=== PATIENT | male | born 1970 | race African-American/Black ===

== ENCOUNTER 2017-05-10 19:24 | Emergency (ER) | payer OTHER ==
--- NOTE | 2017-05-10 19:41 | EDPHY ---
H & P Stated Complaint: fever, sore throat, ache HPI/ROS: HPI CHIEF COMPLAINT: Sore throat, fever HISTORY OF PRESENT ILLNESS: This patient is a 47-year-old male otherwise healthy no significant medical history presents emergency room stating that he had chills earlier today and sore throat. He states for most today he had intermittent chills no rigors. 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 He decided come the emergency room due to the high temperature. Upon arrival to the emergency room he is afebrile. We checked his temperature multiple times. Oral temp here was negative. Recheck this 3 times to make sure. He states his temperature was 105.9degrees 20 minutes prior to arrival. He did take NyQuil this evening. However took his temperature and 20 minutes prior to arriving states was 105.9. Of note here in the emergency room he appears well nontoxic he has no complaints. He states he had chills earlier and sore throat. He denies any cough, shortness of breath, chest pain, vomiting, rigors. Denies generalized weakness. He does not take any medications. He does state that his sore throat is now improved. Past Medical History: No medical history Past Surgical History: No surgical history Social History: Denies daily use drugs alcohol tobacco products. Family History: Noncontributory ROS REVIEW OF SYSTEMS: A comprehensive 10 point review of systems is otherwise negative aside from elements mentioned in the history of present illness. Exam Constitutional appears well nontoxic triage nursing summary reviewed, vital signs reviewed, awake/alert. Vital signs noted at triage. Afebrile. Eyes normal conjunctivae and sclera, EOMI, PERRLA. HENT TMs are erythematous bilaterally, posterior pharynx is erythematous but no significant exudate or swelling, uvula midline, no hot potato voice, no neck pain, no change in voice, no drooling, no trouble swallowing,, moist mucus membranes, no epistaxis, neck supple/ no meningismus, no raccoon eyes. Respiratory clear to auscultation bilaterally, normal breath sounds, no respiratory distress, no wheezing. Cardiovascular rate normal, regular rhythm, no murmur, no edema, distal pulses normal. Gastrointestinal soft, non-tender, no rebound, no guarding, normal bowel sounds, no distension, no pulsatile mass. Genitourinary no CVA tenderness. Musculoskeletal no midline vertebral tenderness, full range of motion, no calf swelling, no tenderness of extremities, no meningismus, good pulses, neurovascularly intact. Skin pink, warm, & dry, no rash, skin atraumatic. Neurologic awake, alert and oriented x 3, AAOx3, moves all 4 extremities equally, motor intact, sensory intact, CN II-XII intact, normal cerebellar, normal vision, normal speech. Psychiatric normal mood/affect. Heme/Lymph/Immune no lymphadenopathy. Differential Diagnosis: Includes but is not limited to in a particular order viral syndrome, respiratory tract infection, strep pharyngitis, influenza, acute febrile illness, inaccuracy of a thermometer Medical Decision Making: Plan for this patient rapid strep, check influenza, basic blood work. If elevated white count may obtain blood cultures and lactic acid. Re-evaluation: Clinically on exam this patient appears very well nontoxic in no acute distress. Temperature 105.9degrees at home 20 minutes prior to arrival however afebrile here. 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 His only complaint is sore throat. Had chills earlier. Checked his temperature here multiple times. Will do a blood draw to look at basic blood work, sent rapid strep and check influenza. This patient certainly appears well not ill does not appear septic or bacteremic. He is afebrile here. 2048: On re-evaluation this patient remains afebrile nontoxic-appearing he has no complaints. Vital signs are stable. I did pull blood cultures due to the elevated white blood cell count. He does have a bulging erythematous TMs bilaterally and posterior pharynx is erythematous is possible this is a viral syndrome. Unclear why he had a fever of 105.9 at home and then arrived to the emergency room afebrile we did check this multiple times. Lactic acid is less than 2. Blood cultures pending. He understands keep his fold on as our allowed to go home as he appears very well here is afebrile. However he does understand return precautions. Specifically if he spiking temperatures has chills or rigors is vomiting or does not feel well he should return to the emergency room. Also additionally will start azithromycin here in the emergency room and Z-Fausto for home. This will cover his ears and throat. Return to the ER if worse. He understands. Source: Patient - Personal History Current Tetanus Diphtheria and Acellular Pertussis (TDAP): Yes - Medical/Surgical History Hx Asthma: No Hx Chronic Respiratory Disease: No Hx Diabetes: No Hx Cardiac Disease: No Hx Renal Disease: No Hx Cirrhosis: No Hx Alcoholism: No Hx HIV/AIDS: No Hx Splenectomy or Spleen Trauma: No Other PMH: denies - Social History Smoking Status: Never smoked Constitutional: Initial Vital Signs Temperature (C) 37.5 C 05/10/17 19:32 Heart Rate 109 H 05/10/17 19:32 Respiratory Rate 20 05/10/17 19:32 Blood Pressure 125/80 H 05/10/17 19:32 O2 Sat (%) 94 05/10/17 19:32 Allergies/Adverse Reactions: No Known Allergies Allergy (Unverified 05/10/17 19:32) Home Medications: Medication Instructions Recorded AZITHROMYCIN [Z-PACK] 250 mg PO DAILY #6 tab 05/10/17 Medical Decision Making - Data Points Laboratory Results: Laboratory Results 05/10/17 19:58 05/10/17 19:58 05/10/17 05/10/17 05/10/17 Unknown 20:30 20:30 WBC RBC Hgb Hct MCV MCH MCHC RDW Plt Count MPV Neut % (Auto) Lymph % (Auto) [place] % (Auto) Eos % (Auto) Baso % (Auto) Nucleat RBC Rel Count Absolute Neuts (auto) Absolute Lymphs (auto) Absolute Monos (auto) Absolute Eos (auto) Absolute Basos (auto) Absolute Nucleated RBC Immature Gran % Immature Gran # VBG Lactic Acid 1.2 mmol/L mmol/L (0.7-2.1) Sodium Potassium Chloride Carbon Dioxide Anion Gap BUN Creatinine Estimated GFR Glucose Calcium Urine Color YELLOW Urine Appearance CLEAR Urine pH 6.0 (5.0-7.5) Ur Specific [place] <= 1.005 (1.002-1.030) Urine Protein NEGATIVE (NEGATIVE) Urine Ketones NEGATIVE (NEGATIVE) Urine Blood NEGATIVE (NEGATIVE) Urine Nitrate NEGATIVE (NEGATIVE) Urine Bilirubin NEGATIVE (NEGATIVE) Urine Urobilinogen 0.2 EU EU (0.2-1.0) Ur Leukocyte Esterase NEGATIVE (NEGATIVE) Urine Glucose NEGATIVE (NEGATIVE) Influenza A,B Rapid Group A Strep Screen Group A Strep DNA Pending 05/10/17 05/10/17 05/10/17 19:58 19:58 19:45 WBC 14.48 10^3/uL H 10^3/uL (3.80-9.50) RBC 4.81 10^6/uL 10^6/uL (4.40-6.38) Hgb 14.9 g/dL g/dL (13.7-17.5) Hct 41.9 % % (40.0-51.0) MCV 87.1 fL fL (81.5-99.8) MCH 31.0 pg pg (27.9-34.1) MCHC 35.6 g/dL g/dL (32.4-36.7) RDW 12.2 % % (11.5-15.2) Plt Count 184 10^3/uL 10^3/uL (150-400) MPV 10.7 fL fL (8.7-11.7) Neut % (Auto) 83.7 % H % (39.3-74.2) Lymph % (Auto) 9.6 % L % (15.0-45.0) [place] % (Auto) 6.0 % % (4.5-13.0) Eos % (Auto) 0.1 % L % (0.6-7.6) Baso % (Auto) 0.3 % % (0.3-1.7) Nucleat RBC Rel Count 0.0 % % (0.0-0.2) Absolute Neuts (auto) 12.12 10^3/uL H 10^3/uL (1.70-6.50) Absolute Lymphs (auto) 1.39 10^3/uL 10^3/uL (1.00-3.00) Absolute Monos (auto) 0.87 10^3/uL H 10^3/uL (0.30-0.80) Absolute Eos (auto) 0.02 10^3/uL L 10^3/uL (0.03-0.40) Absolute Basos (auto) 0.04 10^3/uL 10^3/uL (0.02-0.10) Absolute Nucleated RBC 0.00 10^3/uL 10^3/uL (0-0.01) Immature Gran % 0.3 % % (0.0-1.1) Immature Gran # 0.04 10^3/uL 10^3/uL (0.00-0.10) VBG Lactic Acid Sodium 134 mEq/L mEq/L (134-144) Potassium 3.7 mEq/L mEq/L (3.5-5.2) Chloride 100 mEq/L mEq/L (97-110) Carbon Dioxide 21 mEq/l L mEq/l (22-31) Anion Gap 13 mEq/L mEq/L (8-16) BUN 17 mg/dL mg/dL (7-23) Creatinine 1.0 mg/dL mg/dL (0.7-1.3) Estimated GFR > 60 Glucose 93 mg/dL mg/dL (70-100) Calcium 9.4 mg/dL mg/dL (8.5-10.4) Urine Color Urine Appearance Urine pH Ur Specific [place] Urine Protein Urine Ketones Urine Blood Urine Nitrate Urine Bilirubin Urine Urobilinogen Ur Leukocyte Esterase Urine Glucose Influenza A,B Rapid NEGATIVE FOR FLU (NEGATIVE) Group A Strep Screen Group A Strep DNA 05/10/17 19:45 WBC RBC Hgb Hct MCV MCH MCHC RDW Plt Count MPV Neut % (Auto) Lymph % (Auto) [place] % (Auto) Eos % (Auto) Baso % (Auto) Nucleat RBC Rel Count Absolute Neuts (auto) Absolute Lymphs (auto) Absolute Monos (auto) Absolute Eos (auto) Absolute Basos (auto) Absolute Nucleated RBC Immature Gran % Immature Gran # VBG Lactic Acid Sodium Potassium Chloride Carbon Dioxide Anion Gap BUN Creatinine Estimated GFR Glucose Calcium Urine Color Urine Appearance Urine pH Ur Specific [place] Urine Protein Urine Ketones Urine Blood Urine Nitrate Urine Bilirubin Urine Urobilinogen Ur Leukocyte Esterase Urine Glucose Influenza A,B Rapid Group A Strep Screen NEGATIVE (NEGATIVE) Group A Strep DNA Medications Given: Discontinued Medications Ondansetron HCl (Zofran) 4 mg IVP EDNOW ONE Stop: 05/10/17 20:25 Last Admin: 05/10/17 20:35 Dose: Not Given Departure - Departure Disposition: Home, Routine, Self-Care Clinical Impression: Sore throat, Viral syndrome Fever Qualifiers: Fever type: unspecified Qualified Code(s): R50.9 - Fever, unspecified Condition: Good Instructions: Fever in Adults (ED) Additional Instructions: 1. Drink lots of fluids stay well-hydrated. 2. Return emergency room if he develops worsening symptoms questions or concerns includes high fever, vomiting or you do not feel well. 3. Please call in 24 hours about blood culture results. 4. Please keep your phone on in case we have to call you about any important results. Referrals: NONE *PRIMARY CARE P,. [Primary Care Provider] - As per Instructions Prescriptions: AZITHROMYCIN [Z-PACK] 250 mg PO DAILY #6 tab
[2017-05-10 20:03] LABS: % IMMATURE GRANULYOCYTES 0.3 % (0.0-1.1); ABSOLUTE IMMATURE GRANULOCYTES 0.04 10^3/uL (0.00-0.10); ADD DIFF? NO; ADD MORPH? NO; ADD SCAN? NO; ATYPICAL LYMPHOCYTE FLAG 0 (0-99); FRAGMENT RBC FLAG 0 (0-99); HEMATOCRIT 41.9 % (40.0-51.0); HEMOGLOBIN 14.9 g/dL (13.7-17.5); LEFT SHIFT FLG 0 (0-99); LIPEMIA HEMOLYSIS FLAG 90 (0-99); MEAN CELL HEMOGLOBIN CONCENTR. 35.6 g/dL (32.4-36.7); MEAN CELL VOLUME 87.1 fL (81.5-99.8); MEAN PLATELET VOLUME 10.7 fL (8.7-11.7); PLATELET CLUMPS FLAG 10 (0-99); PLATELET COUNT 184 10^3/uL (150-400); RED BLOOD CELL COUNT 4.81 10^6/uL (4.40-6.38); RED CELL DISTRIBUTION WIDTH 12.2 % (11.5-15.2)
[2017-05-10 20:15] LABS: ANION GAP 13 mEq/L (8-16); CALCIUM 9.4 mg/dL (8.5-10.4); CARBON DIOXIDE 21 mEq/l (22-31); CHLORIDE 100 mEq/L (97-110); GLOMERULAR FILTRATION RATE > 60; GLUCOSE 93 mg/dL (70-100); POTASSIUM 3.7 mEq/L (3.5-5.2); SODIUM 134 mEq/L (134-144)
[2017-05-10] MEDS ORDERED: ONDANSETRON 4 MG/2 ML VIAL IVP ONE (20:24)
[2017-05-10 20:38] LABS: COLOR YELLOW; LEUKOCYTE ESTERASE,URINE NEGATIVE (NEGATIVE); NITRITE,URINE NEGATIVE (NEGATIVE)
[2017-05-10] MEDS ORDERED: AZITHROMYCIN 250 MG TAB PO ONE (20:49)
[2017-05-10 20:59] VITALS: BP 133/76; PULSE 89; RESP 16; TEMP 98.4; O2SAT 97
== END 2017-05-10 21:06 | disposition home or self-care (01) ==
LOC: CED 19:24
DX: B34.9 Viral infection, unspecified (principal)
CPT/HCPCS: 80048-PO; 81003-PO; 83605-PO; 85025-PO; 87400-PO; 87880-PO